=== PATIENT | male | born 1985 | race Caucasian/White ===

== ENCOUNTER 2021-08-25 02:41 | Emergency (ER) | payer SELFPAY ==
[2021-08-25 04:10] LABS: #Basophils 0.1 thou/uL (0.0-0.2); #Eosinphils 0.1 thou/uL (0.0-0.7); #Lymphocytes 0.8 thou/uL (1.20-3.40); #Monocytes 0.8 thou/uL (0.11-0.59); #Neutrophils 7.5 thou/uL (1.40-6.50); %Basophils 0.6 % (0.0-1.0); %Eosinophils 0.9 % (0.0-10.0); %Lymphocytes 8.4 % (21.0-51.0); %Monocytes 8.2 % (0.0-10.0); %Neutrophils 81.9 % (42.0-75.0); Hemoglobin 14.1 g/dL (14.0-18.0); Mean Corpuscular HGB CONC 34.6 g/dL (32.0-36.0); Mean Corpuscular Hemoglobin 33.4 pg (27.0-31.0); Mean Corpuscular Volume 96.6 fL (78.0-98.0); Mean Platelet Volume 9.1 fL (7.4-10.4); Platelet Count 195 thou/uL (130-400); RBC Distribution Width 12.1 % (11.5-14.5); Red Blood Cell (RBC) Count 4.23 mill/uL (4.70-6.10); White Blood Cell (WBC) Count 9.2 thou/uL (4.8-10.8)
[2021-08-25 04:23] LABS: ALT (SGPT) 39 U/L (8-55); AST (SGOT) 45 U/L (5-34); Albumin 4.3 g/dL (3.5-5.0); Alkaline Phosphatase 85 U/L (40-110); Anion Gap 15 mmol/L (10-20); BUN (Urea Nitrogen) 18 mg/dL (8.9-20.6); Calc. Creatinine Clearance 0 mL/min (70-130); Calcium 9.1 mg/dL (7.8-10.44); Carbon Dioxide 26 mmol/L (22-29); Chloride 101 mmol/L (98-107); Globulin 2.7 g/dL (2.4-3.5); Glucose 110 mg/dL (70-105); Magnesium 2.2 mg/dL (1.6-2.6); Potassium 3.1 mmol/L (3.5-5.1); Sodium 139 mmol/L (136-145)
[2021-08-25 04:31] LABS: Acetaminophen Less than 10.0 mcg/mL (10.0-30.0); Alcohol Less than 10 mg/dL (Less than 10); CK (CPK) 458 U/L (30-200); Salicylate Less than 8.0 mg/dL (15.0-30.0)
== END 2021-08-25 05:04 ==
LOC: ERS 02:41 → EDBD 02:41 → ERS 05:04
DX: E87.6 Hypokalemia (principal); R41.82 Altered mental status, unspecified
CPT/HCPCS: 36415; 80053; 80307; 82550; 83735; 84443; 84484; 85025; 93005